=== PATIENT | female | born 1960 | race African-American/Black ===

== ENCOUNTER 2018-07-17 12:57 | Emergency (ER) | payer MEDICAID, OTHER ==
[~2018-07-17] VITALS: Ht 170.2 cm; Wt 110.0 kg
[~2018-07-17 12:57] MED LIST: LISI-604 PO; NIFE60TA78 PO; OMEP20CA10 PO
[2018-07-17] MEDS: CEFAZOLIN 1000MG PREMIX 50 ML IV SCH ×2 (15:15→16:48)
[2018-07-17 15:21] LABS: BASOPHILS % 0.4 % (0.0-2.0); EOSINOPHILS % 0.4 % (0.0-5.0); HEMATOCRIT. 26.9 % (36.0-48.0); HEMOGLOBIN. 8.4 g/dL (12.0-16.0); LYMPHOCYTES % 22.6 % (20.0-50.0); MEAN CORPUSCULAR HEMOGLOBIN 19.1 pg (28.0-32.0); MEAN CORPUSCULAR VOLUME 61.6 fL (81.0-99.0); MEAN PLATELET VOLUME 8.4 fl (7.4-10.4); MONOCYTES % 10.2 % (2.0-8.0); NEUTROPHILS % 66.4 % (40.0-76.0); PLATELET 395 x1000/uL (130-400); RED BLOOD CELL COUNT 4.36 mill/uL (4.2-5.4); RED CELL DISTRIBUTION WIDTH 19.5 % (11.6-14.6)
[2018-07-17 15:25] LABS: CHLORIDE 106 mEq/L (98-107)
[2018-07-17 15:27] LABS: INR 1.2
[2018-07-17 15:30] LABS: ETHANOL BLOOD 70 mg/dL
[2018-07-17 16:08] LABS: PLATELET ESTIMATE NORMAL
[2018-07-17] MEDS ORDERED: TETANUS, DIPHTHERIA, PERTUSSIS VAC/PF 0.5ML (>7YR OLD) IM ONE (17:00)
[2018-07-17] MEDS ORDERED: IBUPROFEN 800MG TABLET PO ONE (17:15)
[2018-07-17 17:40] VITALS: BP 123/65
== END 2018-07-17 18:05 | disposition home or self-care (01) ==
LOC: ER 12:57
DX: S81.011A Laceration without foreign body, right knee, initial encounter (principal); M54.2 Cervicalgia; J44.9 Chronic obstructive pulmonary disease, unspecified; I10 Essential (primary) hypertension; F17.200 Nicotine dependence, unspecified, uncomplicated; Z87.440 Personal history of urinary (tract) infections; Z87.09 Personal history of other diseases of the respiratory system; Z96.651 Presence of right artificial knee joint; Z79.899 Other long term (current) drug therapy; V49.88XA Car occupant (driver) (passenger) injured in other specified transport accidents, initial encounter; Y93.89 Activity, other specified; Y92.89 Other specified places as the place of occurrence of the external cause; Y99.8 Other external cause status
CPT/HCPCS: 12002; 36415; 70450; 71045; 72125; 73562; 80053; 80320; 84484; 85025; 85610; 90471; 90715; 93005; 96365; 99284; J0690; Z7610; G0480

== ENCOUNTER 2018-07-19 10:06 | Emergency (ER) | payer OTHER ==
[~2018-07-19] VITALS: Ht 170.2 cm; Wt 109.0 kg
[2018-07-19] MEDS ORDERED: IPRATROPIUM BROMIDE (0.02%) 0.5MG/2.5ML NEB HHN STA (13:10)
[2018-07-19] MEDS ORDERED: ALBUTEROL (0.083%) 2.5MG/3ML NEB HHN STA (13:10)
[2018-07-19] MEDS ORDERED: PREDNISONE 20MG TABLET PO STA (13:10)
[2018-07-19 15:12] VITALS: BP 137/86
== END 2018-07-19 15:13 | disposition home or self-care (01) ==
LOC: ER 10:14
DX: J44.1 Chronic obstructive pulmonary disease with (acute) exacerbation (principal); Z48.01 Encounter for change or removal of surgical wound dressing; I10 Essential (primary) hypertension; F41.9 Anxiety disorder, unspecified; F17.200 Nicotine dependence, unspecified, uncomplicated; Z96.651 Presence of right artificial knee joint; Z79.899 Other long term (current) drug therapy
CPT/HCPCS: 71045; 93005; 94640; 99283; J7512; J7611

== ENCOUNTER 2018-07-24 04:18 | Inpatient (IN) | payer MEDICAID, OTHER ==
[~2018-07-24] VITALS: Ht 170.2 cm; Wt 108.9 kg
[2018-07-24] MEDS ORDERED: ALBUTEROL (0.083%) 2.5MG/3ML NEB HHN STA (04:36)
[2018-07-24] MEDS ORDERED: METHYLPREDNISOLONE SOD SUCC 125 MG/2 ML VIAL IV STA (04:36)
[2018-07-24] MEDS ORDERED: CEFAZOLIN 1000MG PREMIX 50 ML IV ONE (04:45)
[2018-07-24 04:50] LABS: BASOPHILS % 1.6 % (0.0-2.0); EOSINOPHILS % 2.1 % (0.0-5.0); HEMATOCRIT. 24.5 % (36.0-48.0); HEMOGLOBIN. 7.5 g/dL (12.0-16.0); LYMPHOCYTES % 31.4 % (20.0-50.0); MEAN CORPUSCULAR VOLUME 61.6 fL (81.0-99.0); MEAN PLATELET VOLUME 8.3 fl (7.4-10.4); MONOCYTES % 9.1 % (2.0-8.0); NEUTROPHILS % 55.8 % (40.0-76.0); PLATELET 334 x1000/uL (130-400); RED BLOOD CELL COUNT 3.97 mill/uL (4.2-5.4); RED CELL DISTRIBUTION WIDTH 20.2 % (11.6-14.6)
[2018-07-24 04:58] LABS: CHLORIDE 110 mEq/L (98-107)
[2018-07-24 05:02] LABS: ETHANOL BLOOD 140 mg/dL
[2018-07-24] MEDS ORDERED: HYDROCODONE/ACETAMINOPHEN 5/325MG TABLET PO ONE (05:15)
[2018-07-24 05:41] LABS: PLATELET ESTIMATE NORMAL
[2018-07-24 07:48] LABS: CANNABINOID URINE SCREEN NEGATIVE (NEGATIVE); METHADONE URINE SCREEN NEGATIVE (NEGATIVE); OPIATES URINE SCREEN PRESUMTIVE POSITIVE (NEGATIVE); PHENCYCLIDINE URINE SCREEN PRESUMTIVE POSITIVE (NEGATIVE)
[2018-07-24 07:49] LABS: *AMPHETAMINES SCREEN URINE NEGATIVE (NEGATIVE); *BARBITURATES SCREEN URINE NEGATIVE (NEGATIVE); *BENZODIAZEPINES SCREEN URINE NEGATIVE (NEGATIVE); *COCAINE SCREEN URINE PRESUMTIVE POSITIVE (NEGATIVE)
[2018-07-24 10:00] VITALS: BP 154/90
[2018-07-24] MEDS ORDERED: ACETAMINOPHEN 325MG TABLET PO PRN (10:00)
[2018-07-24] MEDS ORDERED: ENOXAPARIN 40MG/0.4ML SYR SUBCUT SCH (10:00)
[2018-07-24] MEDS ORDERED: ONDANSETRON HCL 4MG/2ML INJ IV PRN (10:00)
[2018-07-24] MEDS ORDERED: GUAIFENESIN 200MG/10ML SUGAR FREE UDC PO PRN (10:00)
[2018-07-24 11:21] LABS: TOTAL IRON BINDING CAPACITY 495 ug/dL (250-450)
[2018-07-24 12:00] VITALS: BP 159/96
[2018-07-24] MEDS ORDERED: METHYLPREDNISOLONE SOD SUCC 40 MG/ML VIAL IV SCH (12:00)
[2018-07-24] MEDS ORDERED: HYDROCODONE/ACETAMINOPHEN 5/325MG TABLET PO PRN (12:00)
[2018-07-24] MEDS: MORPHINE SULFATE 4 MG/ML CPJ (NOT FOR IM USE) IV PRN (12:15)
[2018-07-24] MEDS: IPRATROPIUM/ALBUTEROL 0.5-3(2.5)MG/3ML NEB HHN SCH ×3 (12:46→20:59)
[2018-07-24 16:00] VITALS: BP 155/99
[2018-07-24] MEDS: CEFAZOLIN 1000MG PREMIX 50 ML IV SCH ×2 (19:43→20:35)
[2018-07-24 20:00] VITALS: BP 170/114
[2018-07-24] MEDS: METHYLPREDNISOLONE SOD SUCC 40 MG/ML VIAL IV SCH (20:35)
[2018-07-24] MEDS: CLONIDINE 0.1MG TABLET PO PRN (20:36)
[2018-07-24 22:00] VITALS: BP 159/100
[2018-07-24] MEDS ORDERED: CEFAZOLIN SODIUM 1000MG/VIAL IV SCH (22:00)
[2018-07-25] VITALS (7 sets, daily range): BP systolic 139–156; BP diastolic 82–103
[2018-07-25] MEDS: IPRATROPIUM/ALBUTEROL 0.5-3(2.5)MG/3ML NEB HHN SCH ×6 (00:40→21:13)
[2018-07-25] MEDS: METHYLPREDNISOLONE SOD SUCC 40 MG/ML VIAL IV SCH ×4 (02:21→20:51)
[2018-07-25] MEDS: CEFAZOLIN 1000MG PREMIX 50 ML IV SCH ×3 (03:00→20:51)
[2018-07-25] MEDS: MORPHINE SULFATE 4 MG/ML CPJ (NOT FOR IM USE) IV PRN ×2 (03:00→14:45)
[2018-07-25] MEDS: CLONIDINE 0.1MG TABLET PO PRN (05:29)
[2018-07-25 06:09] LABS: CHLORIDE 109 mEq/L (98-107)
[2018-07-25 06:21] LABS: HEMOGLOBIN. 7.7 g/dL (12.0-16.0); MEAN CORPUSCULAR HEMOGLOBIN 18.9 pg (28.0-32.0); MEAN CORPUSCULAR VOLUME 61.7 fL (81.0-99.0); PLATELET 368 x1000/uL (130-400); RED BLOOD CELL COUNT 4.05 mill/uL (4.2-5.4); RED CELL DISTRIBUTION WIDTH 20.7 % (11.6-14.6)
[2018-07-25] MEDS ORDERED: VANCOMYCIN 1500MG in DEXTROSE 5% WATER 250ML IV NR (18:00)
[2018-07-25] MEDS ORDERED: IOHEXOL-300 100 ML BOTTLE ONE (20:23)
[2018-07-25 22:41] LABS: PLATELET ESTIMATE NORMAL
[2018-07-26] VITALS: BP 153/93
[2018-07-26] MEDS: MORPHINE SULFATE 4 MG/ML CPJ (NOT FOR IM USE) IV PRN ×4 (00:08→18:09)
[2018-07-26] MEDS: IPRATROPIUM/ALBUTEROL 0.5-3(2.5)MG/3ML NEB HHN SCH ×5 (01:50→20:10)
[2018-07-26] MEDS: METHYLPREDNISOLONE SOD SUCC 40 MG/ML VIAL IV SCH ×4 (02:18→20:08)
[2018-07-26 04:00] VITALS: BP 146/91
[2018-07-26] MEDS: CEFAZOLIN 1000MG PREMIX 50 ML IV SCH ×3 (04:26→20:08)
[2018-07-26] MEDS: VANCOMYCIN 1250MG in DEXTROSE 5% WATER 250ML IV SCH ×2 (04:26→18:09)
[2018-07-26 06:49] LABS: HEMATOCRIT. 24.6 % (36.0-48.0); HEMOGLOBIN. 7.3 g/dL (12.0-16.0); MEAN CORPUSCULAR HEMOGLOBIN 18.6 pg (28.0-32.0); MEAN CORPUSCULAR VOLUME 62.3 fL (81.0-99.0); MEAN PLATELET VOLUME 8.3 fl (7.4-10.4); PLATELET 363 x1000/uL (130-400); RED BLOOD CELL COUNT 3.95 mill/uL (4.2-5.4); RED CELL DISTRIBUTION WIDTH 20.4 % (11.6-14.6)
[2018-07-26 08:00] VITALS: BP 158/110
[2018-07-26 12:00] VITALS: BP 169/112
[2018-07-26 16:00] VITALS: BP 146/101
[2018-07-26] MEDS: NIFEDIPINE XL 60MG TAB PO SCH (18:09)
[2018-07-26 20:00] VITALS: BP 170/96
[2018-07-26] MEDS: CLONIDINE 0.1MG TABLET PO PRN (21:05)
[2018-07-26 22:49] LABS: NUCLEATED RED BLOOD CELLS 1 /100 WBC; PLATELET ESTIMATE NORMAL
[2018-07-27] VITALS: BP 156/92
[2018-07-27] MEDS: IPRATROPIUM/ALBUTEROL 0.5-3(2.5)MG/3ML NEB HHN SCH ×5 (00:01→14:37)
[2018-07-27] MEDS: VANCOMYCIN 1250MG in DEXTROSE 5% WATER 250ML IV SCH (02:30)
[2018-07-27] MEDS: METHYLPREDNISOLONE SOD SUCC 40 MG/ML VIAL IV SCH ×3 (02:30→14:00)
[2018-07-27] MEDS: CEFAZOLIN 1000MG PREMIX 50 ML IV SCH (02:30)
[2018-07-27] MEDS: MORPHINE SULFATE 4 MG/ML CPJ (NOT FOR IM USE) IV PRN ×2 (02:34→08:10)
[2018-07-27 04:00] VITALS: BP 138/97
[2018-07-27 08:00] VITALS: BP 138/94
[2018-07-27] MEDS: NIFEDIPINE XL 60MG TAB PO SCH (08:08)
[2018-07-27] MEDS ORDERED: LISINOPRIL 20MG TABLET PO SCH (09:00)
[2018-07-27] MEDS ORDERED: CEFTRIAXONE 2 G in DEXTROSE 5% WATER 50 ML IV SCH (15:00)
[2018-07-27 17:11] VITALS: BP 124/80
[2018-07-27 19:12] VITALS: BP 124/80
== END 2018-07-27 18:46 | disposition home or self-care (01) | DRG 133 ==
LOC: ER 04:18 → 7WST 05:49 → EDBEDREQ 05:53 → EDBEDREQTM 05:53 → ENRESERV 08:36
PROVIDERS: ADMIT Internal Medicine; ATTEND Internal Medicine
DX: J96.20 Acute and chronic respiratory failure, unspecified whether with hypoxia or hypercapnia (principal); E87.8 Other disorders of electrolyte and fluid balance, not elsewhere classified; E44.0 Moderate protein-calorie malnutrition; J44.1 Chronic obstructive pulmonary disease with (acute) exacerbation; E66.01 Morbid (severe) obesity due to excess calories; L03.115 Cellulitis of right lower limb; Z99.81 Dependence on supplemental oxygen; I10 Essential (primary) hypertension; D64.9 Anemia, unspecified; K21.9 Gastro-esophageal reflux disease without esophagitis; S80.211A Abrasion, right knee, initial encounter; X58.XXXA Exposure to other specified factors, initial encounter; F17.210 Nicotine dependence, cigarettes, uncomplicated; Z96.659 Presence of unspecified artificial knee joint; F41.9 Anxiety disorder, unspecified; Z79.899 Other long term (current) drug therapy; Z68.37 Body mass index [BMI] 37.0-37.9, adult; Y93.89 Activity, other specified; Y92.89 Other specified places as the place of occurrence of the external cause; Y99.8 Other external cause status
CPT/HCPCS: 36415; 71045; 73560; 73700; 80048; 80202; 80305; 80320; 83540; 83550; 83880; 84484; 87070; 87077; 87186; 93005; 94640; 94660; 96365; 96375; 99291; 99406; C1893; J0690; J0696; J2270; J2920; J2930; J3370; J7050; J7060; J7611; J7620; Q9967; G0480

== ENCOUNTER 2018-07-29 06:19 | Emergency (ER) | payer MEDICAID ==
[~2018-07-29] VITALS: Ht 165.1 cm; Wt 122.0 kg
[2018-07-29] MEDS ORDERED: METHYLPREDNISOLONE SOD SUCC 125 MG/2 ML VIAL IV STA (06:48)
[2018-07-29] MEDS ORDERED: ALBUTEROL (0.083%) 2.5MG/3ML NEB HHN STA (06:48)
[2018-07-29] MEDS ORDERED: IPRATROPIUM BROMIDE (0.02%) 0.5MG/2.5ML NEB HHN STA (06:48)
[2018-07-29] MEDS ORDERED: VANCOMYCIN 1 G PREMIX 200 ML IV ONE (07:00)
[2018-07-29] MEDS ORDERED: PIPERACILLIN/TAZ 3.375G PREMIX 50 ML IV ONE (07:00)
[2018-07-29] MEDS ORDERED: SODIUM CHLORIDE 0.9% 1000ML BAG (SEPSIS BOLUS) IV ONE (07:00)
[2018-07-29 07:10] VITALS: BP 111/81
[2018-07-29 07:36] LABS: BASOPHILS % 0.6 % (0.0-2.0); EOSINOPHILS % 2.4 % (0.0-5.0); HEMATOCRIT. 26.6 % (36.0-48.0); LYMPHOCYTES % 30.8 % (20.0-50.0); MEAN CORPUSCULAR HEMOGLOBIN 18.3 pg (28.0-32.0); MEAN CORPUSCULAR VOLUME 61.1 fL (81.0-99.0); MEAN PLATELET VOLUME 6.6 fl (7.4-10.4); MONOCYTES % 7.9 % (2.0-8.0); NEUTROPHILS % 58.3 % (40.0-76.0); PLATELET 378 x1000/uL (130-400); RED BLOOD CELL COUNT 4.35 mill/uL (4.2-5.4); RED CELL DISTRIBUTION WIDTH 20.5 % (11.6-14.6)
[2018-07-29 07:41] LABS: CHLORIDE 103 mEq/L (98-107)
[2018-07-29 07:46] LABS: INR 1.2; PROTHROMBIN TIME 12.4 sec (9.6-11.0)
[2018-07-29 07:57] LABS: PLATELET ESTIMATE NORMAL
== END 2018-07-29 07:59 | disposition left against medical advice (07) ==
LOC: ER 06:19 → CANBEDREQ 11:12
DX: J44.1 Chronic obstructive pulmonary disease with (acute) exacerbation (principal); T81.30XA Disruption of wound, unspecified, initial encounter; L08.89 Other specified local infections of the skin and subcutaneous tissue; Y84.8 Other medical procedures as the cause of abnormal reaction of the patient, or of later complication, without mention of misadventure at the time of the procedure; Y92.89 Other specified places as the place of occurrence of the external cause; I10 Essential (primary) hypertension; F17.210 Nicotine dependence, cigarettes, uncomplicated
CPT/HCPCS: 36415; 80053; 83605; 84145; 84484; 85025; 85610; 87040; 99283; J7030; J7611

== ENCOUNTER 2018-12-30 20:25 | Inpatient (IN) | payer MEDICAID ==
[~2018-12-30] VITALS: Ht 167.6 cm; Wt 91.2 kg
[~2018-12-30 20:25] MED LIST changes: -OMEP20CA10 PO; +OMEP20CA5 PO
[2018-12-30] MEDS ORDERED: METHYLPREDNISOLONE SOD SUCC 125 MG/2 ML VIAL IV STA (20:59)
[2018-12-30] MEDS ORDERED: ONDANSETRON HCL 4MG/2ML INJ IV STA (20:59)
[2018-12-30] MEDS ORDERED: MORPHINE SULFATE 4 MG/ML CPJ (NOT FOR IM USE) IV STA (20:59)
[2018-12-30] MEDS ORDERED: MAGNESIUM 2 G PREMIX 50 ML IV ONE (21:00)
[2018-12-30] MEDS ORDERED: LEVOFLOXACIN 500MG PREMIX 100 ML IV ONE (21:00)
[2018-12-30] MEDS ORDERED: IPRATROPIUM/ALBUTEROL 0.5-3(2.5)MG/3ML NEB HHN ONE (21:00)
[2018-12-30] MEDS ORDERED: ASPIRIN 81MG TABLET PO ONE (21:00)
[2018-12-30 21:43] LABS: BG BASE EXCESS 3.1 mmol/L (-2.0-2.0); BG CARBOXYHEMOGLOBIN 3.2 % (0.5-1.5); BG DEOXYHEMOGLOBIN 4.2 % (0.0-5.0); BG FRACTION INSPIRED OXYGEN 21; BG HCO3 ACT 27.3 mmol/L (22.0-26.0); BG METHEMOGLOBIN 0.2 % (0.0-1.5); BG OXYGEN SATURATION 95.7 % (92.0-98.5); BG OXYHEMOGLOBIN 92.4 % (94.0-97.0); BG PH 7.452 (7.350-7.450); BG PO2 77.5 mmHg (75.0-100.0); BG SAMPLE SITE LEFT RADIAL; BG TOTAL HEMOGLOBIN 6.5 g/dL (12.0-18.0); BG VENT MODE ROOM AIR
[2018-12-30 22:42] LABS: CLARITY URINE CLEAR (CLEAR); COLOR URINE YELLOW (YELLOW); KETONES URINE NEGATIVE (NEGATIVE); LEUKOCYTE ESTERASE URINE NEGATIVE (NEGATIVE); NITRITE URINE NEGATIVE (NEGATIVE); OCCULT BLOOD URINE NEGATIVE (NEGATIVE); PROTEIN URINE NEGATIVE (NEGATIVE); SPECIFIC GRAVITY URINE 1.017 (1.005-1.030); UROBILINOGEN URINE 0.2 E.U./dL (0.2-1.0)
[2018-12-30 22:56] LABS: BASOPHILS % 0.3 % (0.0-2.0); EOSINOPHILS % 1.5 % (0.0-5.0); LYMPHOCYTES % 26.3 % (20.0-50.0); MEAN CORPUSCULAR HEMOGLOBIN 16.2 pg (28.0-32.0); MEAN CORPUSCULAR VOLUME 55.1 fL (81.0-99.0); MEAN PLATELET VOLUME 8.2 fl (7.4-10.4); MONOCYTES % 8.9 % (2.0-8.0); PLATELET 366 x1000/uL (130-400); RED BLOOD CELL COUNT 3.65 mill/uL (4.2-5.4); RED CELL DISTRIBUTION WIDTH 24.1 % (11.6-14.6)
[2018-12-30 22:59] LABS: HEMATOCRIT. 20.1 % (36.0-48.0); HEMOGLOBIN. 5.9 g/dL (12.0-16.0)
[2018-12-30 23:07] LABS: *AMPHETAMINES SCREEN URINE NEGATIVE (NEGATIVE); *BARBITURATES SCREEN URINE NEGATIVE (NEGATIVE)
[2018-12-30 23:07] LABS: CHLORIDE 104 mEq/L (98-107)
[2018-12-30 23:08] LABS: *BENZODIAZEPINES SCREEN URINE NEGATIVE (NEGATIVE); *COCAINE SCREEN URINE PRESUMTIVE POSITIVE (NEGATIVE); CANNABINOID URINE SCREEN NEGATIVE (NEGATIVE); METHADONE URINE SCREEN NEGATIVE (NEGATIVE); OPIATES URINE SCREEN NEGATIVE (NEGATIVE); PHENCYCLIDINE URINE SCREEN PRESUMTIVE POSITIVE (NEGATIVE)
[2018-12-30 23:09] LABS: INR 1.1; PARTIAL THROMBOPLASTIN TIME 23.6 sec (23.4-31.0); PROTHROMBIN TIME 11.4 sec (9.6-11.0)
[2018-12-30 23:12] LABS: ETHANOL BLOOD < 10 mg/dL; PLATELET ESTIMATE NORMAL
[2018-12-30 23:16] LABS: CREATINE KINASE 70 IU/L (26-192)
[2018-12-30 23:19] LABS: CREATINE KINASE MB FRACTION < 1.0 ng/mL (0.5-3.6)
[2018-12-31] VITALS (11 sets, daily range): BP systolic 125–143; BP diastolic 80–94
[2018-12-31] MEDS ORDERED: LEVO50TA8 MT (05:03)
[2018-12-31] MEDS ORDERED: IPRATROPIUM/ALBUTEROL 0.5-3(2.5)MG/3ML NEB HHN PRN (11:30)
[2018-12-31] MEDS: HYDROCODONE/ACETAMINOPHEN 5/325MG TABLET PO PRN ×2 (11:52→17:23)
[2018-12-31] MEDS ORDERED: ENOXAPARIN 30MG/0.3ML SYR SUBCUT SCH (12:00)
[2018-12-31] MEDS: METHYLPREDNISOLONE SOD SUCC 40 MG/ML VIAL IV SCH ×2 (13:29→21:52)
[2018-12-31] MEDS ORDERED: POTASSIUM CHLORIDE INJ 40 MEQ in DEXT 5% WATER 250 ML IV SCH ×2 (14:30→17:30)
[2018-12-31 15:05] LABS: HEMATOCRIT. 21.6 % (36.0-48.0); MEAN CORPUSCULAR HEMOGLOBIN 17.5 pg (28.0-32.0); MEAN CORPUSCULAR VOLUME 58.8 fL (81.0-99.0); MEAN PLATELET VOLUME 8.3 fl (7.4-10.4); MONOCYTES % 7.3 % (2.0-8.0); NEUTROPHILS % 81.7 % (40.0-76.0); PLATELET 374 x1000/uL (130-400); RED BLOOD CELL COUNT 3.67 mill/uL (4.2-5.4); RED CELL DISTRIBUTION WIDTH 27.1 % (11.6-14.6)
[2018-12-31 15:09] LABS: CHLORIDE 105 mEq/L (98-107)
[2018-12-31 15:10] LABS: CHLORIDE 105 mEq/L (98-107)
[2018-12-31 15:11] LABS: HEMOGLOBIN. 6.4 g/dL (12.0-16.0)
[2018-12-31 15:21] LABS: CREATINE KINASE 56 IU/L (26-192); CREATINE KINASE MB FRACTION < 1.0 ng/mL (0.5-3.6)
[2018-12-31] MEDS: IPRATROPIUM/ALBUTEROL 0.5-3(2.5)MG/3ML NEB HHN SCH ×3 (16:45→23:51)
[2018-12-31] MEDS ORDERED: POTASSIUM CHLORIDE 20MEQ TABLET SR PO NR ×2 (19:45→22:00)
[2018-12-31] MEDS ORDERED: DIPHENHYDRAMINE 25MG CAPSULE PO NR (19:45)
[2018-12-31] MEDS: LEVOFLOXACIN 500MG PREMIX 100 ML IV SCH (21:45)
[2018-12-31] MEDS: MORPHINE SULFATE 2 MG/ML CPJ (NOT FOR IM USE) IV PRN (22:32)
[2019-01-01] VITALS (7 sets, daily range): BP systolic 130–171; BP diastolic 80–103
[2019-01-01] MEDS: MORPHINE SULFATE 2 MG/ML CPJ (NOT FOR IM USE) IV PRN ×3 (02:56→20:15)
[2019-01-01] MEDS: IPRATROPIUM/ALBUTEROL 0.5-3(2.5)MG/3ML NEB HHN SCH ×5 (04:22→20:39)
[2019-01-01] MEDS: METHYLPREDNISOLONE SOD SUCC 40 MG/ML VIAL IV SCH ×3 (06:12→22:00)
[2019-01-01] MEDS: LEVOTHYROXINE SODIUM 50MCG TABLET PO SCH (06:12)
[2019-01-01 07:04] LABS: HEMATOCRIT 25.5 % (36.0-48.0); HEMOGLOBIN 7.8 g/dL (12.0-16.0)
[2019-01-01] MEDS ORDERED: LEVOTHYROXINE SODIUM 50MCG TABLET PO SCH (07:10)
[2019-01-01] MEDS: NIFEDIPINE XL 60MG TAB PO SCH (08:31)
[2019-01-01] MEDS ORDERED: IOHEXOL-350 100 ML BOTTLE ONE ×2 (09:55→11:49)
[2019-01-01] MEDS ORDERED: DIATR MEGLU/DIATRIZOATE SOLN 30ML PO NR (18:30)
[2019-01-01] MEDS: LEVOFLOXACIN 500MG PREMIX 100 ML IV SCH (19:54)
[2019-01-01] MEDS ORDERED: LIDOCAINE 5% PATCH TOP SCH (20:00)
[2019-01-01] MEDS ORDERED: BARIUM SULFATE 450ML ORAL SUSP PO SCH (20:00)
[2019-01-01] MEDS: CYCLOBENZAPRINE 10MG TABLET PO SCH (22:00)
[2019-01-02] VITALS: BP 126/87
[2019-01-02] MEDS: IPRATROPIUM/ALBUTEROL 0.5-3(2.5)MG/3ML NEB HHN SCH ×6 (00:15→21:20)
[2019-01-02] MEDS: LIDOCAINE 5% PATCH TOP SCH ×2 (02:08→18:08)
[2019-01-02 04:00] VITALS: BP 133/68
[2019-01-02] MEDS: LEVOTHYROXINE SODIUM 50MCG TABLET PO SCH (06:13)
[2019-01-02] MEDS: METHYLPREDNISOLONE SOD SUCC 40 MG/ML VIAL IV SCH ×3 (06:13→21:55)
[2019-01-02] MEDS: CYCLOBENZAPRINE 10MG TABLET PO SCH ×3 (06:13→21:55)
[2019-01-02] MEDS: MORPHINE SULFATE 2 MG/ML CPJ (NOT FOR IM USE) IV PRN ×2 (06:22→08:15)
[2019-01-02 08:00] VITALS: BP 107/74
[2019-01-02] MEDS: NIFEDIPINE XL 60MG TAB PO SCH (08:15)
[2019-01-02 12:00] VITALS: BP 125/79
[2019-01-02 16:00] VITALS: BP 110/73
[2019-01-02 20:00] VITALS: BP 127/91
[2019-01-02] MEDS: LEVOFLOXACIN 500MG PREMIX 100 ML IV SCH (21:55)
[2019-01-03] VITALS: BP 130/80
[2019-01-03 04:00] VITALS: BP 156/113
[2019-01-03] MEDS: IPRATROPIUM/ALBUTEROL 0.5-3(2.5)MG/3ML NEB HHN SCH ×2 (05:05)
[2019-01-03 05:25] VITALS: BP_SYST 129; BP_SYST 150; BP_DIAS 109; BP_DIAS 92
[2019-01-03] MEDS: CYCLOBENZAPRINE 10MG TABLET PO SCH (06:19)
[2019-01-03] MEDS: METHYLPREDNISOLONE SOD SUCC 40 MG/ML VIAL IV SCH (06:19)
== END 2019-01-03 08:00 | disposition home health service (06) | DRG 140 ==
LOC: ER 20:25 → 8WST 12-31 00:06 → EDBEDREQ 12-31 00:08 → ENRESERV 12-31 02:35
PROVIDERS: ADMIT Internal Medicine; ATTEND Internal Medicine
PROC: 30233N1 Transfusion of Nonautologous Red Blood Cells into Peripheral Vein, Percutaneous Approach (ICD-10-PCS; principal; 2018-12-31)
DX: J44.1 Chronic obstructive pulmonary disease with (acute) exacerbation (principal); D64.9 Anemia, unspecified; I10 Essential (primary) hypertension; R07.89 Other chest pain; R07.2 Precordial pain; R10.13 Epigastric pain; E87.6 Hypokalemia; F19.10 Other psychoactive substance abuse, uncomplicated; F10.10 Alcohol abuse, uncomplicated; E03.9 Hypothyroidism, unspecified; F17.200 Nicotine dependence, unspecified, uncomplicated; K44.9 Diaphragmatic hernia without obstruction or gangrene; Z79.899 Other long term (current) drug therapy; Z71.6 Tobacco abuse counseling
CPT/HCPCS: 36415; 36600; 71045; 71275; 74176; 80048; 80305; 80320; 81003; 82375; 82550; 82553; 82805; 83605; 83880; 84132; 84443; 84484; 85014; 85018; 86850; 86900; 86920; 93005; 93306; 93970; 94640; 96375; 99285; J1650; J1956; J2270; J2405; J2920; J2930; J3475; J3480; J7040; J7060; J7620; P9016; Q0163; Q9963; Q9967; G0480

== ENCOUNTER 2019-01-15 04:30 | Inpatient (IN) | payer MEDICAID ==
[~2019-01-15] VITALS: Ht 170.2 cm; Wt 96.7 kg
[~2019-01-15 04:30] MED LIST changes: +LEVO50TA8 MT; -LISI-604 PO; -OMEP20CA5 PO
[2019-01-15] MEDS ORDERED: METHYLPREDNISOLONE SOD SUCC 125 MG/2 ML VIAL IV STA (06:10)
[2019-01-15] MEDS ORDERED: IPRATROPIUM/ALBUTEROL 0.5-3(2.5)MG/3ML NEB HHN ONE (06:15)
[2019-01-15] MEDS ORDERED: ASPIRIN 81MG TABLET PO ONE (06:15)
[2019-01-15 06:24] LABS: BASOPHILS % 1.8 % (0.0-2.0); EOSINOPHILS % 1.9 % (0.0-5.0); HEMATOCRIT. 28.6 % (36.0-48.0); HEMOGLOBIN. 8.7 g/dL (12.0-16.0); LYMPHOCYTES % 26.8 % (20.0-50.0); MEAN CORPUSCULAR HEMOGLOBIN 18.9 pg (28.0-32.0); MEAN CORPUSCULAR VOLUME 62.5 fL (81.0-99.0); MEAN PLATELET VOLUME 8.5 fl (7.4-10.4); MONOCYTES % 5.8 % (2.0-8.0); NEUTROPHILS % 63.7 % (40.0-76.0); PLATELET 560 x1000/uL (130-400); RED BLOOD CELL COUNT 4.58 mill/uL (4.2-5.4); RED CELL DISTRIBUTION WIDTH 32.4 % (11.6-14.6)
[2019-01-15 06:28] LABS: CHLORIDE 102 mEq/L (98-107)
[2019-01-15 06:35] LABS: PARTIAL THROMBOPLASTIN TIME 26.8 sec (23.4-31.0); PROTHROMBIN TIME 10.4 sec (9.6-11.0)
[2019-01-15 06:36] LABS: CREATINE KINASE 48 IU/L (26-192)
[2019-01-15 06:39] LABS: CREATINE KINASE MB FRACTION < 1.0 ng/mL (0.5-3.6)
[2019-01-15] MEDS ORDERED: MAGNESIUM 2 G PREMIX 50 ML IV ONE (06:45)
[2019-01-15] MEDS ORDERED: POTASSIUM CHLORIDE 20MEQ TABLET SR PO ONE (07:30)
[2019-01-15] MEDS ORDERED: KCL 20MEQ/100ML PREMIX 100 ML IV ONE (07:30)
[2019-01-15 07:52] LABS: *AMPHETAMINES SCREEN URINE NEGATIVE (NEGATIVE); *BARBITURATES SCREEN URINE NEGATIVE (NEGATIVE); *BENZODIAZEPINES SCREEN URINE NEGATIVE (NEGATIVE); *COCAINE SCREEN URINE NEGATIVE (NEGATIVE); METHADONE URINE SCREEN NEGATIVE (NEGATIVE); OPIATES URINE SCREEN NEGATIVE (NEGATIVE)
[2019-01-15 07:54] LABS: CANNABINOID URINE SCREEN NEGATIVE (NEGATIVE); PHENCYCLIDINE URINE SCREEN NEGATIVE (NEGATIVE)
[2019-01-15] MEDS ORDERED: MORPHINE SULFATE 4 MG/ML CPJ (NOT FOR IM USE) IV ONE (08:30)
[2019-01-15 08:35] LABS: PLATELET ESTIMATE INCREASED
[2019-01-15] MEDS ORDERED: DIPHENHYDRAMINE 50MG/ML VIAL IV PRN (08:45)
[2019-01-15] MEDS ORDERED: CLONIDINE 0.1MG TABLET PO PRN (08:45)
[2019-01-15] MEDS ORDERED: GUAIFENESIN 200MG/10ML SUGAR FREE UDC PO PRN (08:45)
[2019-01-15] MEDS ORDERED: LORAZEPAM 2MG/ML CPJ IV PRN (08:45)
[2019-01-15] MEDS ORDERED: MAGNESIUM/ALUMINUM HYDROXIDE/SIMETHICONE 30ML UDC PO PRN (08:45)
[2019-01-15] MEDS ORDERED: IPRATROPIUM/ALBUTEROL 0.5-3(2.5)MG/3ML NEB NEB PRN (08:45)
[2019-01-15] MEDS ORDERED: NA PHOS,M-B/NA PHOS,DI-BA ENEMA 118ML PR PRN (08:45)
[2019-01-15] MEDS ORDERED: ONDANSETRON HCL 4MG/2ML INJ IV PRN (08:45)
[2019-01-15] MEDS: DEXT 5%/0.45% NACL KCL 10MEQ/L 1,000 ML IV SCH (13:00)
[2019-01-15 16:14] VITALS: BP 135/91
[2019-01-15] MEDS: MORPHINE SULFATE 2 MG/ML CPJ (NOT FOR IM USE) IV PRN ×2 (17:14→23:43)
[2019-01-15] MEDS ORDERED: HYDR25TA MT (17:31)
[2019-01-15] MEDS ORDERED: PRED2.5T4 MT (17:31)
[2019-01-15] MEDS ORDERED: INFLUENZA VIRUS VACCINE(AFLURIA) 0.5ML SYR IM ONE (17:45)
[2019-01-15] MEDS: ENOXAPARIN 30MG/0.3ML SYR SUBCUT SCH (18:59)
[2019-01-15 20:46] VITALS: BP 145/100
[2019-01-15 23:50] VITALS: BP 131/91
[2019-01-16] MEDS: DEXT 5%/0.45% NACL KCL 10MEQ/L 1,000 ML IV SCH (02:36)
[2019-01-16 03:55] VITALS: BP 127/83
[2019-01-16] MEDS: MORPHINE SULFATE 2 MG/ML CPJ (NOT FOR IM USE) IV PRN ×4 (05:53→21:36)
[2019-01-16 06:20] LABS: BASOPHILS % 0.5 % (0.0-2.0); EOSINOPHILS % 0.5 % (0.0-5.0); HEMATOCRIT. 25.1 % (36.0-48.0); HEMOGLOBIN. 7.7 g/dL (12.0-16.0); LYMPHOCYTES % 17.6 % (20.0-50.0); MEAN CORPUSCULAR VOLUME 61.8 fL (81.0-99.0); MEAN PLATELET VOLUME 8.5 fl (7.4-10.4); MONOCYTES % 4.9 % (2.0-8.0); NEUTROPHILS % 76.5 % (40.0-76.0); PLATELET 460 x1000/uL (130-400); RED BLOOD CELL COUNT 4.06 mill/uL (4.2-5.4); RED CELL DISTRIBUTION WIDTH 31.7 % (11.6-14.6)
[2019-01-16 06:37] LABS: CHLORIDE 105 mEq/L (98-107)
[2019-01-16 06:48] LABS: LDL CHOLESTEROL 53 mg/dL (5-100)
[2019-01-16 06:50] LABS: HDL CHOLESTEROL 66 mg/dL (40-59); T4 FREE 1.31 ng/dL (0.76-1.46)
[2019-01-16 08:00] VITALS: BP 123/91
[2019-01-16] MEDS: ASPIRIN 81MG EC TABLET PO SCH (08:10)
[2019-01-16] MEDS: HYDROCODONE/ACETAMINOPHEN 5/325MG TABLET PO PRN ×3 (08:11→18:36)
[2019-01-16] MEDS: ENOXAPARIN 30MG/0.3ML SYR SUBCUT SCH ×2 (08:12→20:32)
[2019-01-16 10:12] LABS: CLARITY URINE CLEAR (CLEAR); COLOR URINE YELLOW (YELLOW); KETONES URINE NEGATIVE (NEGATIVE); LEUKOCYTE ESTERASE URINE NEGATIVE (NEGATIVE); NITRITE URINE NEGATIVE (NEGATIVE); OCCULT BLOOD URINE NEGATIVE (NEGATIVE); PROTEIN URINE NEGATIVE (NEGATIVE); UROBILINOGEN URINE 0.2 E.U./dL (0.2-1.0)
[2019-01-16 12:00] VITALS: BP 129/86
[2019-01-16] MEDS: DOCUSATE SODIUM 100MG CAPSULE PO PRN ×2 (14:02→20:55)
[2019-01-16 16:00] VITALS: BP 120/79
[2019-01-16] MEDS: ACETAMINOPHEN 325MG TABLET PO PRN (16:33)
[2019-01-16] MEDS ORDERED: LEVOFLOXACIN 500MG PREMIX 100 ML IV SCH (18:30)
[2019-01-16 20:00] VITALS: BP 101/53
[2019-01-16 21:30] VITALS: BP 118/81
[2019-01-17] VITALS: BP 110/74
[2019-01-17] MEDS: ACETAMINOPHEN 325MG TABLET PO PRN (00:03)
[2019-01-17 04:15] VITALS: BP 118/84
[2019-01-17] MEDS: DEXT 5%/0.45% NACL KCL 10MEQ/L 1,000 ML IV SCH (04:33)
[2019-01-17] MEDS: MORPHINE SULFATE 2 MG/ML CPJ (NOT FOR IM USE) IV PRN ×2 (04:50→08:46)
[2019-01-17 08:00] VITALS: BP 129/95
[2019-01-17] MEDS: ASPIRIN 81MG EC TABLET PO SCH (08:38)
[2019-01-17] MEDS: ENOXAPARIN 30MG/0.3ML SYR SUBCUT SCH (08:39)
[2019-01-17 10:08] VITALS: BP 129/95
== END 2019-01-17 10:50 | disposition home or self-care (01) | DRG 243 ==
LOC: ER 04:30 → 6WST 08:24 → EDBEDREQTM 08:51 → ENRESERV 13:43
PROVIDERS: ADMIT Internal Medicine; ATTEND Internal Medicine
DX: K21.9 Gastro-esophageal reflux disease without esophagitis (principal); E66.9 Obesity, unspecified; F17.200 Nicotine dependence, unspecified, uncomplicated; I10 Essential (primary) hypertension; J44.9 Chronic obstructive pulmonary disease, unspecified; R10.9 Unspecified abdominal pain; Z68.33 Body mass index [BMI] 33.0-33.9, adult; Z79.899 Other long term (current) drug therapy
CPT/HCPCS: 36415; 71045; 74176; 80061; 80305; 80320; 81003; 82550; 82553; 83880; 84439; 84443; 84484; 90686; 93005; 96374; 99285; J1650; J1956; J2270; J2405; J2930; J3475; J3480; J7620; G0480